=== PATIENT | male | born 1960 | race Caucasian/White ===

== ENCOUNTER 2021-03-20 18:11 | Emergency (ER) | payer MEDICARE, BC ==
[~2021-03-20] VITALS: Ht 157.5 cm; Wt 71.9 kg
[~2021-03-20 18:11] MED LIST: HYDR25TA6 OR; IBUP600T OR; LISI10TA4 OR; NEUR400C OR; SIMV20TA2 OR; endocet OR
[2021-03-20 19:15] LABS: BASO % 0.2 % (0.0-1.0); HEMOGLOBIN 14.8 g/dl (13.5-17.5); LYMPH # 1.3 10^3/uL (1.5-5.0); LYMPH % 12.5 % (24.0-44.0); MEAN CORPUSCULAR HEMOGLOBIN 29.7 pg (27.0-33.0); MEAN CORPUSCULAR HGB CONC 34.4 g/dl (32.0-36.5); MEAN CORPUSCULAR VOLUME 86.2 fl (80.0-96.0); MONO # 0.5 10^3/uL (0.0-0.8); MONO % 4.3 % (2.0-8.0); NEUTROPHILS # 8.7 10^3/uL (1.5-8.5); NEUTROPHILS % 82.5 % (36.0-66.0); PLATELET COUNT, AUTOMATED 218 10^3/uL (150-450); RED BLOOD COUNT 4.99 10^6/uL (4.30-6.10); WHITE BLOOD COUNT 10.6 10^3/uL (4.0-10.0)
--- NOTE | 2021-03-20 19:39 | REP ---
INDICATION: CHEST PAIN. COMPARISON: None. TECHNIQUE: Single portable AP view of the chest was performed. FINDINGS: There is no acute infiltrate or pulmonary edema. Lungs are clear. The heart is not significantly enlarged. The mediastinal silhouette is unremarkable. The visualized osseous structures are intact.There is a left dual lead pacemaker. IMPRESSION: No acute pulmonary disease. <Electronically signed by Jose Guadalupe Denton > 03/20/217
[2021-03-20 19:48] LABS: ALBUMIN 4.2 GM/DL (3.2-5.2); ALT/SGPT 40 U/L (12-78); BILIRUBIN,DIRECT 0.2 MG/DL (0.0-0.2); BILIRUBIN,TOTAL 0.4 MG/DL (0.2-1.0); BLOOD UREA NITROGEN 20 MG/DL (7-18); CALCIUM LEVEL 9.6 MG/DL (8.8-10.2); CARBON DIOXIDE LEVEL 28 MEQ/L (21-32); CHLORIDE LEVEL 101 MEQ/L (98-107); CK-MB VALUE MASS 1.1 NG/ML (<3.6); CPK CREATINE PHOSPHOKINASE 97 U/L (39-308); CREATININE FOR GFR 0.75 MG/DL (0.70-1.30); GLOMERULAR FILTRATION RATE > 60.0 (>49); GLUCOSE, FASTING 117 MG/DL (70-100); LIPASE 179 U/L (73-393); MB/CK RELATIVE INDEX 1.13 (< OR =4); POTASSIUM SERUM 3.8 MEQ/L (3.5-5.1); SODIUM LEVEL 136 MEQ/L (136-145); TOTAL PROTEIN 7.9 GM/DL (6.4-8.2); TROPONIN I < 0.02 NG/ML (< 0.10)
[2021-03-20] MEDS ORDERED: KEPP1TAB PO (22:49)
[2021-03-20 22:56] VITALS: BP 141/74
[2021-03-20] MEDS ORDERED: levETIRAcetam 250MG TABLET (KEPPRA) PO ONE (23:05)
--- NOTE | 2021-03-21 08:28 | REP ---
INDICATION: altered. COMPARISON: None. TECHNIQUE: CT brain performed in the axial plane. Coronal reconstruction images are performed. FINDINGS: The ventricles are normal in size and position.. There is no midline shift or mass effect. [place]-white differentiation is well maintained. There is no acute intracranial hemorrhage or extra-axial fluid collection. Bone window examination is unremarkable. The visualized mastoid air cells and paranasal sinuses are clear. IMPRESSION: Negative noncontrast CT brain. A preliminary report was provided by [facility] at the time of the exam. <Electronically signed by Jose Guadalupe Denton > 03/21/21 [id number]
--- NOTE | 2021-03-21 10:16 | ECGEPIP ---
[facility] - ED Test Date: 2021-03-20 Pat Name: LANDY MALONE Department: Room: - Gender: Male [employer] Mason: : 1960 Requested By: Bridgette Corea Order Number: [id number] Reading MD: Bridgette Corea Measurements Intervals [place] Rate: 72 P: 61 MT: 174 QRS: 20 QRSD: 86 T: 23 QT: 418 QTc: 457 Interpretive Statements Normal sinus rhythm NSTTW abnormalities No prior Electronically Signed on 03-21-2021 10:16:37 EDT by Bridgette Corea
== END 2021-03-20 23:21 | disposition home or self-care (01) ==
LOC: M ED 18:11
DX: G40.89 Other seizures (principal); I10 Essential (primary) hypertension; E78.5 Hyperlipidemia, unspecified; Z79.899 Other long term (current) drug therapy